=== PATIENT | female | born 1970 | race Two or more races ===

== ENCOUNTER → 2022-12-29 07:25 | Outpatient (BNVA) | payer OTHER, SELFPAY | PROVIDERS: PCP Family Medicine; Visit Provider Student in an Organized Health Care Education/Training Program | DX: M05.9 Rheumatoid arthritis with rheumatoid factor, unspecified (principal); M12.30 Palindromic rheumatism, unspecified site | CPT/HCPCS: 99202 ==

== ENCOUNTER 2023-12-22 09:36 | Outpatient (AMB) | payer MEDICAID, SELFPAY ==
--- NOTE | 2023-12-22 09:43 | MHC.OFFVIS ---
Vital Signs 12/22/23 09:47 Height 5 ft 7 in Weight 125 lb 14.143 oz BMI 19.7 BP 92/60 Blood Pressure Location Rt brachial Position Sitting Pulse 77 Pulse Oximetry (%) 98 Intake Visit Reasons: palindromic rheumatism Intake Note: Patient last seen 12/29/22 presents today for follow up. 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 She states that she has been doing reasonably well from an MSK standpoint over the last year. She has not had any major flare-ups. Does not recall any joint swelling. She gets intermittent aching joints in her feet, neck, back, hands. She takes Advil about once a month. She states that this year has been quite stressful. 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 Her family home situation is quite stressful. She has lost some weight over the last year. She also developed multiple mouth sores. Those have resolved. She was having symptoms of eye irritation over the last 2 years but they have become worse recently and she was recently evaluated by an track repairer helper and started on hypertonic drops which were quite helpful. Initial history: This is a 52-year-old female with seropositive RA who presents as a new patient. Her previous orthodontic technician assistant left the practice. Patient stated that she was diagnosed with RA around 2000. She has never been on DMARDs for fear of side effects. She states that she gets flares of fatigue, body aches, joint pain and stiffness, intermittent swelling it can last a few weeks, this happens every 3-4 months. She used to follow up with a orthodontic technician assistant Dr. Gao in [place] for many years and she was mostly treated with stress relieving techniques, exercising, Mediterranean diet, reducing sugar, turmeric, [place] 3. She was evaluated by Dr. Stanton once or twice by [facility]. Patient denies any cough or shortness of breath. Denies any weight change. She also has history of Raynaud's without complications. 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 Review of Systems Const Reports weight loss Eyes Reports dry eyes Resp Reports no additional complaints GI Reports no additional complaints Musc Reports arthralgias, Denies joint swelling and Reports stiffness Physical Exam Vital Signs: Last Vital Signs Pulse 77 12/22/23 09:47 BP 92/60 12/22/23 09:47 Pulse Ox 98 12/22/23 09:47 BMI result Body Mass Index 19.7 Const General: cooperative, healthy appearing and comfortable Nutritional Appearance: average body habitus Orientation/consciousness: patient oriented x3 Limitations: no limitations HEENT Head: Yes normocephalic and Yes atraumatic Mouth: moist mucous membranes Resp Effort & Inspection: normal respiratory effort and able to speak in complete sentences Auscultation: clear to auscultation bilaterally Cardio Rate: regular rate Rhythm: regular rhythm GI Inspection: No distended Palpation (GI): Soft to palpation and nontender Neuro General: patient oriented x3 Extrem Other: Minimal osteoarthritic changes with no active synovitis Negative MCP squeeze test Left 1st CMC joint tenderness Normal range of motion of both elbows and shoulders with no pain No swelling in knees, ankles Negative MTP squeeze test Results Reviewed Results Reviewed: Labs in 11/2020? Griffin/HEAD ANIMAL TRAINER/dsDNA/SSA/SSB/CCP all negative? RF 75 <14 New EFREN 1-40 nuclear fine speckled? CRP normal Urinalysis normal Assessment & Plan Assessment & Plan (1) Palindromic rheumatism: Comment: ++ RF -ve CCP onset around 2000 never on DMARDs Code(s): M12.30 - Palindromic rheumatism, unspecified site Category: Medical Plan: This is a 53-year-old female with palindromic rheumatism returns for follow-up. Over the last year she has not had any major flare-ups. On exam I do not see any active synovitis. She has never been on DMARDs. I do not see a need for DMARDs at this point. Patient has done relatively well with stress relieving techniques, avoiding sugar, following an anti-inflammatory diet. She takes Advil about once a month Upon evaluation I do not see any to start any DMARDs. I suggested using andre Follow-up in 1 year (2) Weight loss: Code(s): R63.4 - Abnormal weight loss Category: Medical Plan: Patient lost about 7 lb over the last year. Mostly due to stress. We discussed low body mass index association with osteoporosis. Advised patient to try to maintain her weight. Consider a protein shake Plan I spent 25 minutes reviewing patient's chart, evaluating patient, , counseling patient and documenting in the chart Coding Level of Care Code Est Pt Level 3 (74981) Diagnoses Palindromic rheumatism M12.30 Weight loss R63.4
[2023-12-22 09:47] VITALS: BP 92/60; PULSE 77; O2SAT 98; BMI 19.7
== END 2023-12-22 10:12 | disposition home or self-care (01) ==
PROVIDERS: PCP Family Medicine; Visit Provider Student in an Organized Health Care Education/Training Program
DX: M12.30 Palindromic rheumatism, unspecified site (principal); R63.4 Abnormal weight loss
CPT/HCPCS: 99213

== ENCOUNTER → 2023-12-22 09:36 | Outpatient (BNVA) | payer MEDICAID, SELFPAY | PROVIDERS: Visit Provider Student in an Organized Health Care Education/Training Program | DX: M12.30 Palindromic rheumatism, unspecified site (principal); R63.4 Abnormal weight loss | CPT/HCPCS: 99212 ==

== ENCOUNTER 2025-05-01 10:32 | Outpatient (AMB) | payer MEDICAID, SELFPAY ==
--- NOTE | 2025-05-01 10:40 | A.OFFVIS_ITS ---
Vital Signs 05/01/25 10:45 Height 5 ft 7 in Weight 127 lb 6.835 oz BMI 20.0 BP 115/64 Blood Pressure Location Rt brachial Position Sitting Pulse 70 Pulse Source Pulse Oximeter Pulse Oximetry (%) 99 Oxygen Delivery Method Room Air Intake Visit Reasons: RA Intake Note: Patient presents for RA follow up. Allergies fluorouracil Allergy (Severe, Verified 05/01/25 10:44) Anaphylaxis Sulfa (Sulfonamide Antibiotics) Allergy (Severe, Verified 05/01/25 10:44) respiratroy distress Medication List - Last Reconciled 05/01/25 by Maame Don MD No Known Home Meds HPI Comments Details: Patient is a 54 year old female with Palindromic RA and polyarticular OA here today for follow up Interval History: Patient last seen 12/22/[address] Eli - Not on any DMARDs - She states that she has been doing reasonably well from an MSK standpoint over the last year. She has not had any major flare-ups. Does not recall any joint swelling. - She gets intermittent aching joints in her feet, neck, back, hands. She takes Advil about once a month. She states that this year has been quite stressful. 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 Her family home situation is quite stressful. She has lost some weight over the last year. She also developed multiple mouth sores. Those have resolved. She was having symptoms of eye irritation over the last 2 years but they have become worse recently and she was recently evaluated by an cell assembly pinner and started on hypertonic drops which were quite helpful. - No synovitis noted - No indication for DMARDs Today - Not on any DMARDs - Doing well overall - Family situation is stressful: raising her 1 year old and 3 year old grandchildren - Sometimes gets transient pain but none are lasting Rheumatologic History: Initial history: This is a 52-year-old female with seropositive RA who presents as a new patient. Her previous can technician left the practice. Patient stated that she was diagnosed with RA around 2000. She has never been on DMARDs for fear of side effects. She states that she gets flares of fatigue, body aches, joint pain and stiffness, intermittent swelling it can last a few weeks, this happens every 3-4 months. She used to follow up with a can technician Dr. Gao in [place] for many years and she was mostly treated with stress relieving techniques, exercising, Mediterranean diet, reducing sugar, turmeric, [place] 3. She was evaluated by Dr. Stanton once or twice by [facility]. Patient denies any cough or shortness of breath. Denies any weight change. She also has history of Raynaud's without complications. 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 Review of Systems Const Details: Review of Systems Constitutional: Denies fever, chills, weight loss ENT: Denies vision changes, eye pain or eye redness, dental caries, dry mouth GI: Denies nausea, vomiting, diarrhea, abdominal pain, change in BM Pulm: Denies SOB, RILEY, hemoptysis, wheezing Cards: Denies chest pain, palpitations Skin: Denies Raynaud's, rash, nail changes, photosensitivity, WARP SCOURING VAT TENDER: Denies headaches, weakness, paresthesias, recurrent falls MSK: as per HPI All other systems reviewed and are unremarkable except noted above Physical Exam Exam Exam: Vital signs reviewed Physical Examination CONSTITUITIONAL Patient alert and cooperative. Well appearing and in no apparent painful distress MSK Hands * Right Hand: Able to make a fist. No swelling or tenderness to palpation of the MCPs, PIPs or DIPs. * Left Hand: Able to make a fist. No swelling or tenderness to palpation of the MCPs, PIPs or DIPs. * Herbedens and Bouchards nodes noted bilaterally Wrists * Right Wrist: Full ROM to flexion and extension. No swelling or TTP * Left Wrist: Full ROM to flexion and extension. No swelling or TTP Elbows * Right Elbow: Full ROM. No swelling or TTP. No TTP of the medial epicondyle. No TTP of the lateral epicondyle * Left Elbow: Full ROM. No swelling or TTP. No TTP of the medial epicondyle. No TTP of the lateral epicondyle Shoulders * Right shoulder: Full ROM. No swelling noted. No TTP of the AC joint. No TTP of the subacromial bursa. No TTP of the posterior shoulder * Left shoulder: Full ROM. No swelling noted. No TTP of the AC joint. No TTP of the subacromial bursa. No TTP of the posterior shoulder Hip bursa: No tenderness to palpation bilaterally Knees * Right knee: Full ROM. No swelling noted. No TTP of the knee joint line. No TTP of pes anserine bursa * Left knee: Full ROM. No swelling noted. No TTP of the knee joint line. No TTP of pes anserine bursa. * Crepitations felt bilaterally Ankles * Right ankle: Good ankle dorsiflexion and plantar flexion. No swelling. No TTP of the ankle joint * Left ankle: Good ankle dorsiflexion and plantar flexion. No swelling. No TTP of the ankle joint Feet * Right foot: Negative squeeze test * Left foot: Negative squeeze test Tender points? * No tenderness to palpation of the bilateral trapezius, supraspinatus, anterior costochondral junctions, bilateral suboccipital muscle insertions SKIN No rashes Normal nailfold capilloroscopy Vital Signs: Last Vital Signs Pulse 70 05/01/25 10:45 BP 115/64 05/01/25 10:45 Pulse Ox 99 05/01/25 10:45 Oxygen Delivery Method Room Air 05/01/25 10:45 BMI result Body Mass Index 20.0 Results Reviewed Results Reviewed: No labs in the system Assessment & Plan Assessment & Plan (1) Palindromic rheumatism: Comment: ++ RF -ve CCP onset around 2000 never on DMARDs Code(s): M12.30 - Palindromic rheumatism, unspecified site Category: Medical Plan: #Palindromic RA Patient is a 54 year old female with palindromic RA here today for follow up No evidence of inflammatory arthritis today No need for DMARDs at this time Encouraged her continued active lifestyle Plan - Continue to monitor off DMARDs - Labs today: CBC, CMP, ESR, CRP - RTC 1 year Plan This is my first visit with the patient. I spent 30 minutes reviewing the record and labs, taking a history, examining the patient, discussing the treatment plan, ordering diagnostic work up and documenting in the medical record Orders: Orders 2 Complete Blood Count Auto Diff Today Z79.899 - Other fdc (current) drug therapy Comprehensive Met. Panel Today Z79.899 - Other fdc (current) drug therapy Erythrocyte Sedimentation Rate Today Z79.899 - Other fdc (current) drug therapy C Reactive Protein Today Z79.899 - Other fdc (current) drug therapy Coding Level of Care Code Est Pt Level 4 (96910) Complex EM visit Add On G2211 Diagnoses Palindromic rheumatism M12.30
[2025-05-01 10:45] VITALS: BP 115/64; PULSE 70; O2SAT 99
--- OUTSIDE RECORDS SUMMARY | 2025-05-01 12:07 | XMS_ITS | Clinical Summary ---
Author Organization [facility] Address [facility] [place] [address] Care Team Providers Care Electro Winning Operator Name Role Phone Connie Meraz СВЕТЛАНА Primary Care Provider [phone] Allergies Active Allergy Reactions Criticality Noted Date Comments Fluorouracil 01/07/2016 Sulfisoxazole Anaphylaxis High 12/29/2011 Medications No known medications Active Problems Problem Noted Date Diagnosed Date EFREN positive 12/28/2016 Arthralgia of multiple sites 12/28/2016 Raynauds phenomenon 12/28/2016 Assessment & Plan (05/08/2019 12:39 PM EDT): For Raynaud's phenomenon, continue with core body temperature elevation with clothing layering, gloves, monitoring for temperature changes. Falconer-3 fish oil has been shown to be helpful. Can try this. Can consider medications or continue medications if they are helpful. Monitor for any distal finger or toe lesions and let us know. Assessment & Plan (01/17/2018 1:41 PM EDT): [facility] RHEUMATOLOGY RAYNAUD'S RECOMMENDATIONS General Raynaud's Information What is Raynaud's disease? - Raynaud disease is a condition that can cause people s fingers and toes to turn white or purple-blue (figure 1). Raynaud disease does not always cause symptoms, but people can get an a ttack when it is cold out, when they feel stressed, or when they are startled. Raynaud disease is more common in women than men. Normally, blood vessels in parts of the body become narrow under certain conditions, such as when it is very cold out. When people have Raynaud disease, the blood vessels become much more narrow than usual during these times. This causes symptoms. Most people with Raynaud disease have normal blood vessels. But some people with Raynaud disease also have another disease that affects their blood vessels. What are the symptoms of Raynaud disease? - Most often, Raynaud disease affects the fingers. During an attack, people s fingers suddenly become cold and turn white or purple-blue. Attacks usually begin in the index, middle, or ring fingers and then spread to the fingers in both hands. The thumb is not usually affected. During an attack, a person s hand can feel numb, clumsy, or like it has p ins and needles. It does not need to be very cold out for people to have an attack. Attacks can happen when people go from a warm area to a cooler area, such as walking into an air-conditioned building. Raynaud disease can also affect other parts of the body. The toes, ears, nose, face, knees, and nipples can become white or blue when they are cold. Once a person warms up or is no longer stressed, the symptoms go away and the skin becomes pink or red. This usually takes 15 to 20 minutes. People who have Raynaud disease plus another disease affecting their blood vessels can have more severe symptoms. Their attacks can last longer, and they can develop pain or open sores on their fingers and toes. Is there a test for Raynaud disease? - No. But your doctor or nurse should be able to tell if you have it by talking with you and doing an exam. Your doctor or nurse might also order blood tests. Is there anything I can do on my own to prevent attacks of Raynaud disease? - Yes. To help prevent attacks, you can: ?Try not to let your body get cold too quickly and or change temperatures too quickly. Keep your whole body warm and avoid cold breezes or cold places. You can dress warmly by wearing layers of clothes, hats, and mittens or gloves. ?Don t smoke - Smoking can make your symptoms worse. ?Avoid medicines that cause blood vessels to become narrow, such as cold medicines or diet pills ?Try to relax and reduce the stress in your life If you have an attack, you can try to end it quickly by warming up your hands. Place your hands in warm water or in a warm place, such as in your armpits. Should I see a doctor or nurse? - Yes. If you continue to have attacks after trying the things listed above, talk with your doctor or nurse. Your doctor might prescribe a medicine to help reduce your symptoms. Some people take medicine for Raynaud disease only during the cold winter months. You should also see your doctor or nurse if you have an attack that does not get better. If your symptoms do not go away, your doctor or nurse might send you to the hospital for further treatment. All topics are updated as new evidence becomes available and our peer review process is complete. This topic retrieved from [employer] on: Aug 25, 2015. We can consider pentoxifylline or calcium channel blockade if we need to. Rheumatoid factor positive 12/28/2016 Assessment & Plan (05/08/2019 12:38 PM EDT): At this point the plan will be to continue to monitor with a yearly visit. She does get flareups that are cyclical in nature and we will monitor closely. No other changes in symptoms for now. No other treatment options other than natural approaches which will include turmeric (Curcumin), omega-3 fatty acid and as needed analgesics. Assessment & Plan (01/17/2018 1:42 PM EDT): Her rheumatoid factor is been positive. Workup has shown no other secondary causes of this. At this point I think we just monitor. No signs or symptoms of progressive disease. I think we can see how she does overall and if worsens may consider other treatment options. Nonspecific immunological findings 01/07/2016 Fibromyalgia 12/03/2014 Assessment & Plan (01/17/2018 1:45 PM EDT): At this point I do not see many signs or symptoms of fibromyalgia as well. I think we just watch and monitor. Social History Tobacco Use Types Packs/Day Years Used Date Smoking Tobacco: Former Smokeless Tobacco: Never Comments Unknown Sex and Gender Information Value Date Recorded Sex Assigned at Not on file Legal Sex Female 6:52 AM EST Gender Identity Not on file Sexual Orientation Not on file Last Filed Vital Signs Vital Sign Reading Time Taken Comments Blood Pressure 110/68 05/08/2019 11:24 AM EDT Pulse 78 05/08/2019 11:24 AM EDT Temperature 37 C (98.6 F) 01/17/2018 1:09 PM EDT Respiratory Rate - - Oxygen Saturation 98% 01/17/2018 1:09 PM EDT Inhaled Oxygen Concentration - - Weight 62.3 kg (137 lb 6.4 oz) 05/08/2019 11:24 AM EDT Height 170.2 cm (5' 7 ) 01/17/2018 1:09 PM EDT Body Mass Index 21.52 01/17/2018 1:09 PM EDT Plan of Treatment Health Maintenance Due Date Last Done Comments CT Colonography 1968 Colonoscopy 1968 Colorectal Cancer Screening 1968 FIT DNA 1968 FIT 1968 Sigmoidoscopy (10 year) with FIT yearly 1968 Sigmoidoscopy 1968 HIV screen 1986 Hepatitis C Screening 1986 Hepatitis B vaccine (0-59 yrs) and Risk (1) 11/23/1987 Tetanus/Diphtheria/Pertussis Vaccines (1 - Tdap) 11/22 Breast Cancer Share Decision Needed 2008 Pneumoccocal Vaccine: 50+ (1 of 1 - PCV) 2018 Zoster vaccine (1 of 2) 2018 Breast Cancer screening 04/11/2021 04/11/2019 Advance Directive 11/23/2023 HPV test 12/25/2024 12/26/2019 PAP Smear 12/25/2024 12/26/2019 Covid-19 Vaccine (1 - season) 2025 Influenza (Flu) vaccine (1 o f 1 - Influenza standard series) 04/01/2025 Procedures Procedure Name Priority Date/Time Associated Diagnosis Comments HPV Routine 12/26/2019 2:00 PM EDT CERAMIC DESIGNER CYTOLOGY FINAL REPORT Routine 12/26/2019 2:00 PM EDT MAMMO SCREENING CAD AND VIC BILATERAL Routine 04/11/2019 from Last 3 Months or Most Recently Relevant to Health Maintenance Results * HPV (12/26/2019 2:00 PM EDT) HPV16 NEGATIVE NEGATIVE [facility] HPV 18 NEGATIVE NEGATIVE [facility] HPV Other HR NEGATIVE NEGATIVE [facility] HPV Interpretation See Comment [facility] Comment: NEGATIVE for high-risk HPV *. * Testing negative for high risk HPV means that the specimen is negative for the following 14 types tested: types 16, 18, 31, 33, 35, 39, 45, 51, 52, 56, 58, 59, 66, and 68. The test is not intended to detect low risk HPV types. Elisha Madiha HPV test Specimen: HPV Testing - Cytology Liquid Based Prep Cervical swab (specimen) 12/26/2019 2:00 PM EDT 12/29/2019 4:11 AM EDT Narrative Resulting Agency Comment Spec In Lab us Halina Jefferson MD PATHOLOGY/CYTOLOGY ORDERAB LES Final Result [facility] [place] [address] * Slag Expander Cytology Final Report (12/26/2019 2:00 PM EDT) Slag Expander Cytology Final Report [id number] Location: [facility] The signing pathologist has (i) examined the relevant preparation(s) for the specimen(s) and (ii) rendered or confirmed the diagnosis(es). . Slag Expander Final DIAGNOSIS Normal Negative for intraepithelial lesion or malignancy (NILM). For consensus guidelines for the management of cervical cancer screening test results, please see: http://www.asccp. org . Electronically signed by: Maye LEONARD(ASCP)Paola Verified: 01/08/2020 Shotblast Operator Performed at: -[facility] Dept. of Pathology, [place], [place] HPV RESULTS HPV16 (Result) Negative HPV18 (Result) Negative HPVOHR (Result) Negative HPV (Interpretation) See Below HPV (Interpretation) Text: NEGATIVE for high-risk HPV *. *Testing negative for high risk HPV means that the specimen is negative for the following 14 types tested: types 16, 18, 31, 33, 35, 39, 45, 51, 52, 56, 58, 59, 66, and 68. The test is not intended to detect low risk HPV types. Eilsha madiha HPV test Specimen: HPV Testing - Cytology Liquid Based Prep The Elisha madiha HPV test was validated, performed and results reported through the [facility] ([facility]) at [facility]. - Abe De Jesus, PhD, [facility], Director-[facility] STATEMENT OF ADEQUACY Specimen submitted is satisfactory for evaluation. No endocervical component present. Note: Initial cross-sectional studies suggested that GREG cells were more commonly identified when an endocervical component was present, however subsequent longitudinal studies fail to show that women lacking an endocervical component in a Pap smear are at increased risk for GREG. CLINICAL INFORMATION HPV Option: Concurrent HPV CT/NG Option: (not provided) Preparation: Liquid Based Pap Specimen Source: Cervical Endocervical LBP LMP: 6 weeks ago Hysterectomy?: No ?: Unknown ?: No I.U.D.?: Unknown Pelvic Radiation: Unknown Hist Abnl Pap/Biopsy?: Unknown Prior CERAMIC DESIGNER Therapy?: Unknown Hist of HPV Vaccine?: Unknown Clinical Data, Significant Therapy and Clinical Impression : . CLINICAL INFORMATION _ Referring Identifier: (not provided) Note: The Pap test is a screening test for cervical cancer with an inherent false-negative rate dependent upon several variables. For further information please contact the [facility] Laboratory. Reference: Dustin DOCKERY. Bacteriology Teacher of Pap Smear Results. In: Laura BS, Dmitry HH, ed. The Pap Smear. [place]: Arnvivi, 2002: 71-77. Comment Section Specimen collected at [facility] 12/26/2019 2:00 PM EDT us Halina Jefferson MD PATHOLOGY/CYTOLOGY ORDERAB LES Final Result [facility] [place] [address] * Mammo Screening Cad and Vic Bilateral (04/11/2019) Anatomical Region Laterality Modality Breast Bilateral Mammography 04/11/2019 Narrative 04/11/2019 1:21 PM EDT Ord Phys: Connie Meraz PATIENT'S BMI IS 21.0. Last mammogram was performed 4 years ago. Reason for exam: screening, asymptomatic routine screening;Z12.31 Encounter for screening mammogram for malignant ne [place] Mammogram Digital Screening: April 11, 2019 - Exam #: [id number] Bilateral CC and MLO view(s) were taken. Technologist: ADAL Gomez RT (R)(M) (ARRT) Prior study comparison: April 11, 2015, bilateral dig. Mammogram screening performed at [facility]. There are scattered fibroglandular densities. Bilateral mammography with CAD and digital breast tomosynthesis was performed. No dominant mass, architectural distortion or suspicious microcalcifications are seen. ASSESSMENT: Negative - Category 1 Routine screening mammogram of both breasts in 1 year. Electronically Signed By: Zeeshan Bowles MD *#* *#* Read by: Zeeshan Bowles M.D. Procedure Note Zeeshan Bowles MD - 04/11/2019 Ord Phys: Kt Connie PATIENT'S BMI IS 21.0. Last mammogram was performed 4 years ago. Reason for exam: screening, asymptomatic routine screening;Z12.31 Encounter for screening mammogram for malignant ne [place] Mammogram Digital Screening: April 11, 2019 - Exam #: [id number] Bilateral CC and MLO view(s) were taken. Technologist: ADAL Gomez RT (R)(M) (ARRT) Prior study comparison: April 11, 2015, bilateral dig. Mammogram screening performed at [facility]. There are scattered fibroglandular densities. Bilateral mammography with CAD and digital breast tomosynthesis was performed. No dominant mass, architectural distortion or suspicious microcalcifications are seen. ASSESSMENT: Negative - Category 1 Routine screening mammogram of both breasts in 1 year. Electronically Signed By: Zeeshan Bowles MD *#* *#* Read by: Zeeshan Bowles M.D. Connie Meraz MAINTENANCE PAINTER IMG MAMMO ORDERABLES Final Result from Last 3 Months or Most Recently Relevant to Health Maintenance Insurance [place]ICAID [place] Care Teams Electro Winning Operator Relationship Specialty Start Date End Date Connie Meraz APRN [address], [place] [id number] PCP - General Family Medicine 05/08/19
== END 2025-05-01 11:20 | disposition home or self-care (01) ==
LOC: HO.RHES 10:33
PROVIDERS: PCP Family Medicine; Visit Provider Student in an Organized Health Care Education/Training Program
DX: M12.30 Palindromic rheumatism, unspecified site (principal)
CPT/HCPCS: 99214; G2211

== ENCOUNTER 2025-05-01 10:32 | Outpatient (REF) | payer MEDICAID, SELFPAY ==
--- OUTSIDE RECORDS SUMMARY | 2025-05-01 13:07 | XMS_ITS | Encounter Summary ---
Author Organization [facility] Address [address] [place] [address] Phone Care Team Providers Care Police Investigator Name Role Phone Rosalie Jade DO Primary Care Provider [phone] Rosalie Jade DO Primary Care Provider [phone] Mildred Mccullough RN Unavailable Encounter Details Date Type Department Care Team (Late st Contact Info) Description 09/02/2020 Procedure Pass [facility], [address] [address] Social History Tobacco Use Types Packs/Day Years Used Date Smoking Tobacco: Never Assessed Comments No Sex and Gender Information Value Date Recorded Sex Assigned at Female 07/05/2022 8:36 PM EST Legal Sex Female 9:33 AM EST Gender Identity Female 07/05/2022 8:36 PM EST Sexual Orientation Straight 07/05/2022 8: 36 PM EST documented as of this encounter Plan of Treatment Not on file documented as of this encounter Visit Diagnoses Not on filedocumented in this encounter Care Teams Police Investigator Relationship Specialty Start Date End Date Rosalie Jade DO PCP - General Family Medicine 08/29/20 07/04/22 Rosalie Jade DO [address] [place] [id number] [email or web address] PCP - General Family Medicine 07/05/22 Mildred Mccullough RN [address] [place] [address] [email or web address] iCMP Burner Technician 11/20/24 11/27/24 documented as of this encounter Additional Source Comments The information contained in this document represents components of the legal health record. It is not the complete legal health record.[facility]
--- OUTSIDE RECORDS SUMMARY | 2025-05-01 13:07 | XMS_ITS | Encounter Summary ---
Author Organization [facility] Address [address] [facility] [address] [place] [address] Phone Care Team Providers Care Dive Superintendent Name Role Phone Rosalie Jade DO Primary Care Provider [phone] Mildred Mccullough RN Unavailable Encounter Details Date Type Department Care Team (Latest Contact Info) Description 10/08/2024 Transcribe Orders Virtual Department [address] [place] [address] Jacqueline Harrison MD [address] [place] [address] [email or web address] Cough, unspecified type (Primary Dx) Social History Tobacco Use Types Packs/Day Years Used Date Smoking Tobacco: Former Cigarettes Q uit: 2002 Smokeless Tobacco: Never Alcohol Use Standard Drinks/Week Comments Yes 5 (1 standard drink = 0.6 oz pur e alcohol) Education Answer Date Recorded Are you interested in more education? Not on zafar e 11/26/2022 Are you concerned about learning? Not on file 11/26/2022 No 11/26/2022 No 11/26/2022 Digital Access Answer Date Recorded No 12/25/2022 No 12/25/2022 Reliable internet access at home? Not on file 12/25/2022 Device with a working camera? Not on file Intimate Partner Violence Answer Date R ecorded Are you denied basic needs s uch as food, clothing, or medical care? No 07/19/2023 In the past 12 months have y ou been in a relationship with a person who hurts, threatens, or tries to control you? No 07/19/2023 Are you denied basic needs s uch as food, clothing, or medical care? No 07/19/2023 In the past 12 months have y ou been in a relationship with a person who hurts, threatens, or tries to control you? No 07/19/2023 Comments No Sex and Gender Information Value Date Recorded Sex Assigned at Female 07/05/2022 8:36 PM EST Legal Sex Female 9:33 AM EST Gender Identity Female 07/05/2022 8:36 PM EST Sexual Orientation Straight 07/05/2022 8: 36 PM EST documented as of this encounter Plan of Treatment Scheduled Orders Name Type Priority Associated Diagnoses Orde r Schedule XR Chest Imaging Routine Cough, Unspecified Type Expected: 10/08/2024, Expires: 10/08/2025 documented as of this encounter Visit Diagnoses Diagnosis Cough, unspecified type- Primary documented in this encounter Care Teams Dive Superintendent Relationship Specialty Start Date End Date Rosalie Jade DO [address] [place] [phone] PCP - General Family Medicine 07/05/22 Mildred Mccullough RN [address] [place] [address] iCMP Naval Inspector 11/20/24 11/27/24 documented as of this encounter Additional Source Comments The information contained in this document represents components of the legal health record. It is not the complete legal health record.[facility]
--- OUTSIDE RECORDS SUMMARY | 2025-05-01 13:07 | XMS_ITS | Encounter Summary ---
Author Organization [facility] Address [address] [place] [phone] Phone Care Team Providers Care Wallcovering Hanger Name Role Phone Rosalie Jade DO Primary Care Provider Rosalie Jade DO Primary Care Provider Mildred Mccullough RN Unavailable Encounter Details Date Type Department Care Team (Late st Contact Info) Description 09/02/2020 Ancillary Orders Virtual Department [address] [place] [address] Rosalie Jade DO [address] [place], [place] [phone] [email or web address] Skin lesion of breast Social History Tobacco Use Types Packs/Day Years Used Date Smoking Tobacco: Never Assessed Comments Unknown Sex and Gender Information Value Date Recorded Sex Assigned at Female 07/05/2022 8:36 PM EST Legal Sex Female 9:33 AM EST Gender Identity Female 07/05/2022 8:36 PM EST Sexual Orientation Straight 07/05/2022 8: 36 PM EST documented as of this encounter Plan of Treatment Not on file documented as of this encounter Results * BI US BREAST LIMITED (RIGHT) (09/03/2020 10:38 AM EST) Anatomical Region Laterality Modality Breast Right, Breast Bilateral Right U ltrasound 09/03/2020 10:4 9 AM EST Narrative 09/03/2020 10:50 AM EST Please see diagnostic mammogram report for details. Procedure Note Josh Loco MD - 09/03/2020 Please see diagnostic mammogram report for details. us Rosalie Jade DO [facility] [place] Final Result * BI MAMMOGRAM DIAGNOSTIC WITH TOMOSYNTHESIS WITH CAD (BILATERAL) (09/03/2020 9:38 AM EST) Anatomical Region Laterality Modality Breast Left, Breast Right, Breast Bilateral Bila teral Mammography 09/03/2020 9:54 AM EST Impressions 09/03/2020 10:50 AM EST No imaging findings suspicious for malignancy. Clinical follow-up recommended. The results were given to the patient by the technologist at the time of the examination. The patient has a surgical consultation scheduled following the imaging. BI-RADS CATEGORY: 1 - Negative. DENSITY: The breast tissue is heterogeneously dense, which could obscure a lesion on mammography. Narrative 09/03/2020 10:50 AM EST HISTORY: Swelling, ecchymoses 7:00 position right breast slightly below the nipple. EXAMS: Bilateral diagnostic mammogram with tomosynthesis and CAD, right breast ultrasound. COMPARISON: Previous mammograms dated 04/11/2015 and 04/11/2019. FINDINGS: No suspicious masses, areas of architectural distortion or suspicious microcalcifications on mammography. Directed ultrasound scanning performed of the right breast over the area of skin change. No sonographic abnormalities are demonstrated. Ultrasound scanning of the right axilla is also performed. No abnormal lymph nodes are demonstrated. Procedure Note Josh Loco MD - 09/03/2020 HISTORY: Swelling, ecchymoses 7:00 position right breast slightly belowthe nipple. EXAMS: Bilateral diagnostic mammogram with tomosynthesis and CAD, rightbreast ultrasound. COMPARISON: Previous mammograms dated 04/11/2015 and 04/11/2019. FINDINGS: No suspicious masses, areas of architectural distortion or suspiciousmicrocalcifications on mammography. Directed ultrasound scanning performed of the right breast over the areaof skin change. No sonographic abnormalities are demonstrated. Ultrasoundscanning of the right axilla is also performed. No abnormal lymph nodesare demonstrated. IMPRESSION: No imaging findings suspicious for malignancy. Clinical follow-uprecommended. The results were given to the patient by the technologist at the time ofthe examination. The patient has a surgical consultation scheduledfollowing the imaging. BI-RADS CATEGORY: 1 - Negative. DENSITY: The breast tissue is heterogeneously dense, which could obscurea lesion on mammography. Rosalie Jade DO IMG MG EXAMS Final Result documented in this encounter Visit Diagnoses Diagnosis Skin lesion of breast Skin lesion of breast Skin lesion of breast documented in this encounter Care Teams Wallcovering Hanger Relationship Specialty Start Date End Date Rosalie Jade DO PCP - General Family Medicine 08/29/20 07/04/22 Rosalie Jade DO [address] [place] [address] PCP - General Family Medicine 07/05/22 Mildred Mccullough RN [address] [place] [address] [facility] 11/20/24 11/27/24 documented as of this encounter Additional Source Comments The information contained in this document represents components of the legal health record. It is not the complete legal health record.[facility]
--- OUTSIDE RECORDS SUMMARY | 2025-05-01 13:07 | XMS_ITS | Encounter Summary ---
Author Organization [facility] Address [address] [place] [phone] Phone Care Team Providers Care Senior Tax Specialist Name Role Phone Rosalie Jade DO Primary Care Provider [phone] Mildred Mccullough RN Unavailable Encounter Details Date Type Department Care Team (Late st Contact Info) Description 07/19/2023 Procedure Pass [facility] Endoscopy Admitting Dept Virtual Department [address] [place] [address] Social History Tobacco Use Types Packs/Day Years [...] on filedocumented in this encounter Care Teams Senior Tax Specialist Relationship Specialty Start Date End Date Rosalie Jade DO [address] [place] [address] PCP - General Family Medicine 07/05/22 Mildred Mccullough RN [address] [place] [address] iCMP Heat Treat Puller 11/20/24 11/27/24 documented as of this encounter Additional Source Comments The information contained in this document represents components of the legal health record. It is not the complete legal health record.[facility]
--- OUTSIDE RECORDS SUMMARY | 2025-05-01 13:07 | XMS_ITS | Encounter Summary ---
Author Organization [facility] Address [address] [place] [address] Phone Care Team Providers Care Concert Singer Name Role Phone Rosalie Jade DO Primary Care Provider [phone] Rosalie Jade DO Primary Care Provider [phone]- [phone] Mildred Mccullough RN Unavailable Encounter Details Date Type Department Care Team (Late st Contact Info) Description 09/01/2020 Ancillary Orders [facility],Outside Imaging [address] [place] [address] System, Provider Not In, PhD [address] [address] Social History Tobacco Use Types Packs/Day Years [...] documented as of this encounter Results * Mammogram Outside (No Interpretation) (04/11/2019 12:00 AM EDT) Narrative SYSTEMGENERATED, DOCUMENTATION - 09/01/2020 9:57 AM EST This study is for PACS storage only and not for interpretation. us Provider Not In System PhD IMG OUTSIDE IMAGING W /OUT INTERPRETATION Final Result documented in this encounter Visit Diagnoses Not on filedocumented in this encounter Care Teams Concert Singer Relationship Specialty Start Date End Date Rosalie Jade DO [email or web address] PCP - General Family Medicine 08/29/20 07/04/22 Rosalie Jade DO [address] [place] [address] PCP - General Family Medicine 07/05/22 Mildred Mccullough RN [address] [place] [address] [email or web address] Mortgage Protection Specialist 11/20/24 11/27/24 documented as of this encounter Additional Source Comments The information contained in this document represents components of the legal health record. It is not the complete legal health record.[facility]
--- OUTSIDE RECORDS SUMMARY | 2025-05-01 13:07 | XMS_ITS | Encounter Summary ---
Author Organization [facility] Address [address] [place] [address] Phone Care Team Providers Care Forestry Farm Laborer Name Role Phone Rosalie Jade DO Primary Care Provider Encounter Details Date Type Department Care Team (Late st Contact Info) Description 04/29/2025 MGP RISK SCORES SYSTEM GENERATED External System Generated Encounter [address] [place] [address] Unknown, Unknown, Social History Tobacco Use Types Packs/Day Years [...] on filedocumented in this encounter Care Teams Forestry Farm Laborer Relationship Specialty Start Date End Date Rosalie Jade DO [address] [place] [address] [email or web address] PCP - General Family Medicine 07/05/22 documented as of this encounter Additional Source Comments The information contained in this document represents components of the legal health record. It is not the complete legal health record.[facility]
--- OUTSIDE RECORDS SUMMARY | 2025-05-01 13:07 | XMS_ITS | Encounter Summary ---
Author Organization [facility] Address [address] [place] [phone] Phone Care Team Providers Care Pool Lifeguard Name Role Phone Rosalie Jade DO Primary Care Provider [phone] Rosalie Jade DO Primary Care Provider [phone] Mildred Mccullough RN Unavailable Encounter Details Date Type Department Care Team (Late st Contact Info) Description 09/01/2020 Ancillary Orders [facility],Outside Imaging [address] [place] [address] System, Provider Not In, PhD [address] [address] Social History Tobacco Use Types Packs/Day Years [...] encounter Results * Mammogram Outside (No Interpretation) (04/11/2015 12:00 AM EDT) Narrative SYSTEMGENERATED, DOCUMENTATION - 09/01/2020 9:59 AM EST This study is for PACS storage only and not for interpretation. us Provider Not In System PhD IMG OUTSIDE IMAGING W /OUT INTERPRETATION Final Result documented in this encounter Visit Diagnoses Not on filedocumented in this encounter Care Teams Pool Lifeguard Relationship Specialty Start Date End Date Rosalie Jade DO [email or web address] PCP - General Family Medicine 08/29/20 07/04/22 Rosalie Jade DO [address] [place] [address] PCP - General Family Medicine 07/05/22 Mildred Mccullough RN [address] [place] [address] [email or web address] [facility] Vocational School Teacher 11/20/24 11/27/24 documented as of this encounter Additional Source Comments The information contained in this document represents components of the legal health record. It is not the complete legal health record.[facility]
--- OUTSIDE RECORDS SUMMARY | 2025-05-01 13:07 | XMS_ITS | Encounter Summary ---
Author Organization [facility] Address [address] [place] [address] Phone Care Team Providers Care Interventional Radiologist Name Role Phone Rosalie Jade DO Primary Care Provider [phone] Rosalie Jade DO Primary Care Provider [phone]- [phone] Mildred Mccullough RN Unavailable Encounter Details Date Type Department Care Team (Late st Contact Info) Description 09/02/2020 Procedure Pass [facility], [address] [address] Social History Tobacco Use Types Packs/Day Years [...] on filedocumented in this encounter Care Teams Interventional Radiologist Relationship Specialty Start Date End Date Rosalie Jade DO PCP - General Family Medicine 08/29/20 07/04/22 Rosalie Jade DO [address] [place] [address] [email or web address] PCP - General Family Medicine 07/05/22 Mildred Mccullough RN [address] [place] [address] [email or web address] Breakfast Host 11/20/24 11/27/24 documented as of this encounter Additional Source Comments The information contained in this document represents components of the legal health record. It is not the complete legal health record.[facility]
--- OUTSIDE RECORDS SUMMARY | 2025-05-01 13:07 | XMS_ITS | Clinical Summary ---
Author Organization [facility] Address [address] [place] [address] Phone Care Team Providers Care Respooler Name Role Phone Rosalie Jade DO Primary Care Provider [phone] Allergies Active Allergy Reactions Criticality Noted Date Comments Fluorouracil Anaphylaxis High 09/03/2020 Sulfa (Sulfonamide Antibiotics) Shortness Of Breath High 09/03/2020 Medications No known medications Active Problems Problem Noted Date Diagnosed Date Migraines Rheumatoid arthritis Encounters Date Type Department Care Team Description 04/29/2025 MGP RISK SCORES SYSTEM GENERATED External System Generated Encounter [address] [place] [address] Unknown, Unknown, from Last 3 Months Social History Tobacco Use Types Packs/Day Years [...] Orientation Straight 07/05/2022 8: 36 PM EST Last Filed Vital Signs Vital Sign Reading Time Taken Comments Blood Pressure 106/67 07/19/2023 9:30 AM EST Pulse 65 07/19/2023 9:30 AM EST Temperature 36.2 C (97.2 F) 07/19/2023 9:15 AM EST Respiratory Rate 19 07/19/2023 9:30 AM EST Oxygen Saturation 100% 07/19/2023 9:30 AM EST Inhaled Oxygen Concentration - - Weight 60.8 kg (134 lb) 07/15/2023 10:03 AM EST Height 170.2 cm (5' 7 ) 07/15/2023 10:03 AM EST Body Mass Index 20.99 07/15/2023 10:03 AM EST Plan of Treatment Health Maintenance Due Date Last Done Comments DEPRESSION SCREENING 1980 SMOKING Hx and SMOKELESS TOBACCO SCREENING 1981 HIV ONE-TIME SCREENING (18-65 YEARS) 1986 COLOGUARD 2013 FIT TEST 2013 FOBT 2013 SIGMOIDOSCOPY 2013 VIRTUAL COLONOSCOPY 2013 PNEUMOCOCCAL VACCINES (50+ years) (1 of 1 - PCV) 2018 ZOSTER VACCINES (1 of 2) 2018 MAMMOGRAM 09/03/2022 09/03/2020, 04/01, 04/11/2015 INFLUENZA VACCINE (#1) 2025 , 05/05/2023, 05/06/2022, Additional history exists LIPID PANEL 09/24/2025 09/24/2020 PAP SMEAR 03/23/2026 03/23/2023 Adult Td,Tdap Booster 12/07/2032 12/07/2022 COLONOSCOPY 07/19/2033 07/19/2023 COLORECTAL CANCER SCREENING 07/19/2033 HEPATITIS C SCREENING Completed 09/04/2021 COVID-19 VACCINE Completed 05/03/2024, 11/2022, 05/06/2022, Additional history exists HEPATITIS A VACCINES Aged Out No long er eligible based on patient's age to complete this topic HIB VACCINES Aged Out No longer eligi ble based on patient's age to complete this topic MENINGOCOCCAL VACCINES (ACWY) Aged Out No longer eligible based on patient's age to complete this topic MENINGOCOCCAL VACCINES (B) Aged Out N o longer eligible based on patient's age to complete this topic Medical Devices Not on file Procedures Procedure Name Priority Date/Time Associated Diagnosis Comments ENDOSCOPY, COLON 07/19/2023 8:52 AM EST PAP TEST Routine 03/23/2023 12:00 AM EDT BI MAMMOGRAM DIAGNOSTIC WITH TOMOSYNTHESIS WITH CAD (BILATERAL) Routine 09/03/2020 9:38 AM EST Skin lesion of breast from Last 3 Months or Most Recently Relevant to Health Maintenance Results * ENDOSCOPY, COLON (07/19/2023 8:52 AM EST) Narrative Transcriptions Maximo Cronin MD - 07/19/2023 8:52 AM EST [facility] Patient Name: Nato Marleni Attending MD:: MAXIMO CRONIN MD, , Procedure Date: 07/19/2023 8:52 AM Date of : 1970 Age: 52 Admit Type: Outpatient Gender: Female Room: [place] [address] Referring MD: Rosalie Jade Exam Type: Colonoscopy Indications: Screening for colorectal malignant neoplasm Medications: Monitored Anesthesia Care Procedure: Informed consent was obtained from the patientafter discussion of the indications, limitations, alternatives, benefits, and risks of the procedure. Risks specifically discussed include but are not limited to medication reactions, missed lesions, bleeding, perforation, or the need for emergent surgery. Throughout the procedure, the patient's blood pressure, pulse, end-tidal CO2, and oxygensaturations were monitored continuously. The Olympus pediatric variable colonoscopePCF-[id number] #1 was introduced through the anus and advanced tothe cecum, identified by appendiceal orifice andileocecal valve. The colonoscopy was performed without difficulty. The patient tolerated the procedurewell. The quality of the bowel preparation was excellent. The quality of the bowel preparation was evaluated using the BBPS ([place] Bowel Preparation Scale)with scores of: Right Colon = 3, Transverse Colon = 3and Left Colon = 3 (entire mucosa seen well with no residual staining, small fragments of stool oropaque liquid). The total BBPS score equals 9. Anatomical landmarks were photographed. Complications: No immediate complications. Estimated blood loss: Minimal. Findings: The perianal and digital rectal examinations were normal. A 5 mm polyp was found in the ascending colon. The polyp was sessile. The polyp was removed with acold snare. Resection and retrieval were complete. Internal hemorrhoids were found duringretroflexion. The hemorrhoids were mild. The exam was otherwise normal throughout theexamined colon. Impression: - One 5 mm polyp in the ascending colon, removedwith a cold snare. Resected and retrieved. - Internal hemorrhoids. Recommendation: - Discharge patient to home. - Await pathology results. MAXIMO CRONIN MD, 07/19/2023 9:13:01 AM This report has been signed electronically. Number of Addenda: 0 Note Initiated On: 07/19/2023 8:52 AM Procedure Code(s): --- Professional --- 75767, Colonoscopy, flexible; with removal of tumor(s), polyp(s), or other lesion(s) by snare technique --- Technical --- 75833, Colonoscopy, flexible; with removal of tumor(s), polyp(s), or other lesion(s) by snare technique Diagnosis Code(s): --- Professional --- Z12.11, Encounter for screening for malignantneoplasm of colon D12.2, Benign neoplasm of ascending colon K64.8, Other hemorrhoids --- Technical --- Z12.11, Encounter for screening for malignantneoplasm of colon D12.2, Benign neoplasm of ascending colon K64.8, Other hemorrhoids CPT copyright 2021 [employer]. All rights reserved. The codes documented in this report are preliminary and upon golf ball inspector reviewmay be revised to meet current compliance requirements. Procedure Date: 07/19/2023 8:52:[address] [place] [id number] Rosalie Jade DO GI PROCEDURE ORDERABLES Saadia l Result * Pap Test (03/23/2023 12:00 AM EDT) 03/23/2023 03/24/2023 8: 43 AM EDT Narrative SEE NARRATIVE - 03/29/2023 10:45 AM EDT [address] [address] [place]: Gilda Wray MD TOBACCO DRYING MACHINE OPERATOR Cytology Report FINAL DIAGNOSIS A. PAP SMEAR (SUREPATH) CE: SPECIMEN ADEQUACY: Satisfactory for evaluation; transformation zone present. INTERPRETATION: NEGATIVE FOR INTRAEPITHELIAL LESION OR MALIGNANCY. Electronically Signed Out By: AISHA Harris(ASCP) AISHA Marley(ASCP) The Pap test is a screening test primarily for squamous cancers and precursors and has associated false-negative and false-positive results. New technologies such as liquid-based preparations may decrease but will not eliminate all false-negative results. Regular sampling and follow-up of unexplained clinical signs and symptoms are recommended to minimize false negative results. PROCEDURES/ADDENDA HPV Testing (Requested) Ordered Date: 03/24/2023 A. PAP SMEAR (SUREPATH) CE: Human Papilloma Virus Test NEGATIVE for high-risk Human Papilloma Virus types 16, 18, 45 and the Other high risk probe set (Includes 31, 33, 35, 39, 51, 52, 56, 58, 59, 66, 68) Note: Testing performed by [employer] Onclarity HR-HPV analysis. Clinical correlation is advised. This HPV test was performed at [facility], [address] [place] [address]. This test has been FDA approved for SurePath cervical cytology specimens. The accuracy and precision of this test for all other specimen sources has been verified in the Cytopathology Laboratory of the [facility] and has not been cleared or approved by the U.S. Food and Drug Administration. Clinical correlation is advised. CLINICAL HISTORY Date of Last Menstrual Period: Not Provided Menstrual History: Unknown Other Clinical Conditions: Screening Pap SPECIMEN SOURCE A: PAP SMEAR (SUREPATH) CE Patient Name: NATO YEPEZ : 1970 (Age: 52) Sex: F Institution: [facility] Location: [facility] Date of Collection: 03/23/2023 Date of Reported: 03/29/2023 10:45 Results to: Katie Graves Katie Graves PA CYTOLOGY ORDERABLE S Final Result SEE NARRATIVE * BI MAMMOGRAM DIAGNOSTIC WITH TOMOSYNTHESIS WITH [...] Jade DO IMG MG EXAMS Final Result from Last 3 Months or Most Recently Relevant to Health Maintenance [place] [address] [place] [address] [place] [address] [place] [address] [facility] [facility] [place] [address] [place] [address] A[employer] [facility] A[employer] Care Teams Respooler Relationship Specialty Start Date End Date Rosalie Jade DO [address] [place] [id number] [email or web address] PCP - General Family Medicine 07/05/22 Additional Source Comments The information contained in this document represents components of the legal health record. It is not the complete legal health record.[facility]
[2025-05-01 18:12] LABS: MANUAL DIFF FLAG NO
[2025-05-01 18:22] LABS: Hematocrit 39.8 % (37.0-47.0); Hemoglobin 13.0 g/dl (12.0-16.0); Imm Gran Abs Auto 0.01 X10*3/uL (0.00-0.03); Imm Gran Pct Auto 0.2 % (0.0-0.4); Lymphocytes Absolute Auto 1.8 X10*3/uL (1.2-4.9); Mean Corpuscular HGB Conc 32.7 g/dl (31.0-35.0); Mean Corpuscular Hemoglobin 30.1 pg (27.0-33.0); Mean Corpuscular Volume 92.1 fL (80.0-98.0); NRBC Abs Auto 0.000 X10*3/uL (0.0-0.012); NRBC Pct Auto 0.0 /100WBC (0.0-0.2); Platelet Count 213 X10*3/uL (160-400); Red Blood Count 4.32 X10*6/uL (4.20-5.50); White Blood Count 5.0 X10*3/uL (4.8-10.8)
[2025-05-01 18:41] LABS: Alanine Aminotransferase 23 U/L (0-31); Albumin Level 4.4 g/dL (3.5-5.0); Alkaline Phosphatase 70 U/L (39-117); Anion Gap 10 (12-20); Aspartate Amino Transferase 33 U/L (5-31); Blood Urea Nitrogen 14 mg/dL (9-16); Calcium 9.1 mg/dL (8.4-10.2); Carbon Dioxide 26 mmol/L (22-29); Chloride 109 mmol/L (96-108); Estimated Glomerular Filt Rate > 60; Potassium 4.3 mmol/L (3.3-5.1); Sodium 141 mmol/L (135-145); Total Protein 7.1 g/dL (6.5-8.0)
== END 2025-05-01 10:33 | disposition home or self-care (01) ==
LOC: HO.HKASLDS 10:32
PROVIDERS: PCP Family Medicine; Visit Provider Student in an Organized Health Care Education/Training Program
DX: Z79.899 Other long term (current) drug therapy (principal)
CPT/HCPCS: 36415; 80053; 85025; 85652; 86140; 99212